=== PATIENT | female | born 1955 | race Caucasian/White ===

== ENCOUNTER 2017-05-31 07:13 | Day surgery (SDC) | payer MEDICARE ==
[2017-05-31] MEDS ORDERED: Lactated Ringer's 500 ML IV ONE (07:50)
[2017-05-31] MEDS ORDERED: Propofol 10 mg/ml Inj (20 ML) ONE ×2 (08:56→09:01)
[2017-05-31 09:13] VITALS: TEMP 96.8; O2SAT 100
[2017-05-31 09:26] VITALS: BP 128/67; PULSE 61; RESP 19
== END 2017-05-31 09:52 | disposition home or self-care (01) ==
LOC: H.ENDO 07:13
PROVIDERS: ATTEND Internal Medicine Gastroenterology
DX: K30 Functional dyspepsia (principal); E78.5 Hyperlipidemia, unspecified; R73.03 Prediabetes; K44.9 Diaphragmatic hernia without obstruction or gangrene; K31.9 Disease of stomach and duodenum, unspecified
CPT/HCPCS: 43239; 88305; J2001; J2704; J7120

== ENCOUNTER 2018-07-25 07:17 | Day surgery (SDC) | payer MEDICARE ==
[2018-07-25] MEDS ORDERED: Lactated Ringer's 500 ML IV ONE (07:57)
[2018-07-25 07:58] VITALS: BMI 25.7
[2018-07-25 08:11] VITALS: TEMP 97.6
[2018-07-25] MEDS ORDERED: Propofol 10 mg/ml Inj (20 ML) ONE (10:06)
[2018-07-25 11:09] VITALS: BP 116/55; PULSE 61; RESP 12; O2SAT 100
== END 2018-07-25 12:35 | disposition home or self-care (01) ==
LOC: H.ENDO 07:17
PROVIDERS: ATTEND Internal Medicine Gastroenterology
DX: K64.8 Other hemorrhoids (principal); R93.3 Abnormal findings on diagnostic imaging of other parts of digestive tract
CPT/HCPCS: 45378; J2001; J2704; J7120